=== PATIENT | male | born 1955 | race Caucasian/White ===

== ENCOUNTER 2017-10-25 18:46 | Inpatient (IN) | payer MEDICARE ==
[2017-10-25] MEDS ORDERED: Acetaminophen 500 MG TAB ONE (19:16)
[2017-10-25] MEDS ORDERED: Piperacillin/Tazobactam 3.375 GM VIAL ONE (20:38)
--- NOTE | 2017-10-25 20:46 | CT ---
CT OF THE ABDOMEN AND PELVIS WITHOUT CONTRAST: Date: 10/25/17 INDICATION: History of CVA. Tenderness on the left with concern for pyelonephritis. COMPARISON: Prior exam dated 02/02/17 and 03/17/17. 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 Unopacified liver, spleen, pancreas, and adrenal glands are unchanged. The gallbladder is surgically absent. IVC filter in place. No perinephric stranding is evident. No hydronephrosis is evident. There is a Levin catheter in decompressed bladder. There is perivesicular fat stranding. There is colonic diverticulosis. 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 Stable fro m prior exam. IMPRESSION: 1. Findings suspicious for cystitis. 2. The kidneys are symmetrical in size without evidence of perinephric stranding. No overt noncontra st CT findings to suggest pyelonephritis. 3. Colonic diverticulosis. 4. 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 5. Cholecystectomy. 6. IVC filter. POS: [facility]
[2017-10-25] MEDS ORDERED: Ondansetron HCl/PF 4 MG/2 ML Vial IVP PRN ×2 (21:45→21:47)
[2017-10-25] MEDS ORDERED: Bisacodyl 5 MG TAB PO PRN (21:45)
[2017-10-25] MEDS ORDERED: Milk Of Magnesia 30 ML UDCUP PO PRN (21:45)
[2017-10-25] MEDS ORDERED: Nitroglycerin 0.4 MG TAB (25 Tab Bottle) SL PRN (21:45)
[2017-10-25] MEDS ORDERED: hydrALAZINE 20 MG/ML VIAL SLOW IVP PRN (21:45)
[2017-10-25] MEDS ORDERED: cloNIDine 0.1 MG TAB PO PRN (21:45)
[2017-10-25] MEDS ORDERED: Diabetic Tussin 200 MG/10 ML UDCUP PO PRN (21:45)
[2017-10-25] MEDS ORDERED: Acetaminophen 325 MG TAB PO PRN ×2 (21:45→21:47)
[2017-10-25] MEDS ORDERED: Benzonatate 100 MG CAP PO PRN (21:45)
[2017-10-25] MEDS ORDERED: Mag-Al 1200 mg/1200 mg/30 ML UDCUP PO PRN (21:45)
[2017-10-25] MEDS ORDERED: Loratadine 10 MG TAB PO PRN (21:45)
[2017-10-25] MEDS ORDERED: Senokot 8.6 MG TAB PO PRN (21:45)
[2017-10-25] MEDS ORDERED: Calcium Carbonate 500 MG ChewTAB PO PRN (21:45)
[2017-10-25] MEDS ORDERED: Ondansetron ODT 4 MG TAB SL PRN (21:47)
[2017-10-25] MEDS ORDERED: Sodium Chloride 0.9% 1,000 ML IV SCH (21:47)
[2017-10-25] MEDS ORDERED: diphenhydrAMINE 12.5 MG in Sodium Chloride 0.9% 50 ML IVPB PRN (21:48)
[2017-10-25] MEDS ORDERED: diphenhydrAMINE 50 MG/ML VIAL IVP PRN (22:12)
[2017-10-25 22:46] VITALS: BMI 29.4
[2017-10-25] MEDS: Sodium Chloride 0.9% 1,000 ML IV SCH (23:01)
[2017-10-25] MEDS ORDERED: Ondansetron ODT 4 MG TAB PO PRN (23:42)
[2017-10-25] MEDS: Lorazepam 1 MG TAB PO PRN (23:50)
[2017-10-25] MEDS: traMADol HCl 50 MG TAB PO PRN (23:50)
[2017-10-26] MEDS ORDERED: Nitroglycerin 0.4 MG TAB (25 Tab Bottle) SL PRN (01:17)
[2017-10-26] MEDS ORDERED: PROVENTIL INHALER 6.7 G (200 INHALATIONS) INH PRN (01:17)
[2017-10-26] MEDS ORDERED: Docusate 100 MG CAP PO PRN (01:17)
--- NOTE | 2017-10-26 02:14 | HP ---
DATE OF ADMISSION: 10/25/2017 Patient was seen prior to midnight. CHIEF COMPLAINT: Back pain, nausea, vomiting, and inability to tolerate oral. PRIMARY CARE PHYSICIAN: Dr. Harvey Barba. PRIMARY UROLOGIST: Dr. Smith in [place] at [facility]. HISTORY OF PRESENT ILLNESS: Mr. Valladares is a pleasant 62-year-old male with past medical history of i ndwelling Levin catheter for urinary retention as well as history of coronary artery disease, GERD, g astritis, chronic back pain, history of pulmonary embolism, who presented to [facility] with complaints of nausea and vomiting. History is mainly obtained by the patient who was a formerly [facility] poor historian because he is very hard of hearing and he does not really want to talk in the middl e of night at this time. According to the record review, Mr. Valladares was brought into [facility] by EMS with n ausea, vomiting since last night without blood. He reported several episodes to the ER physician. Tanya ahuja was seen in the emergency room one day prior to this for complaints of sinusitis and was given azit hromycin and steroids, but he never got his medications filled. He also gave history of headache sin ce this morning. He denied any abdominal pain or warm or diarrhea. His last BM was this morning. Tanya ahuja endorsed malaise and some back pain and increased urinary frequency. Upon presentation to the ER, he was hemodynamically stable with blood pressure 148/79 and afebrile wi th temperature 99.4. His oxygen saturation was 100% on room air. Further evaluation included blood work, which showed evidence of urinary tract infection with leukocyte esterase and wbc's in the urine . He was also found to have a leukocytosis with WBCs of 16.5 with a left shift. He did not have any evidence of acute renal insufficiency. He was transferred to our facility for further care. There was concern of pyelonephritis, as the patient has an indwelling suprapubic catheter. He underw ent a CT scan of the abdomen and pelvis, which showed cystitis, but no evidence of pyelonephritis. Tanya ahuja was given empiric antibiotics in the emergency room initially levofloxacin and then Zosyn in our em ergency room and is now being admitted for urinary tract infection: Failed outpatient antibiotic moy tment and sepsis. PAST MEDICAL HISTORY: 1. History of urinary retention. 2. Sleep apnea. 3. History of TIA remotely. 4. Coronary artery disease. 5. Gastroesophageal reflux disease. 6. Gastritis. 7. Pulmonary embolus. 8. Pneumothorax. 9. Migraines. 10. Hypertension. 11. COPD. 12. Psychiatric diagnosis. PAST SURGICAL HISTORY: Left rotator cuff repair 2015, right knee arthroscopy, tonsillectomy, IVC vangie ter placement, lap for abdominal pain, hiatal hernia repair, CABG x3 vessels in 2007, laparoscopic ch olecystectomy. ALLERGIES: Multitude of allergies including ANCEF, KEFLEX, DETROL, FLOMAX, HALDOL, METHADONE, PROPOF OL, ZOCOR, SULFA, THORAZINE, TRAZODONE, and VANCOMYCIN. FAMILY HISTORY: No family history of clotting or bleeding disorders. No immune dysfunction. No his tory of stroke or heart disease runs in his family. SOCIAL HISTORY: He has smoked 3 packs per day for more than 30 years, but is cutting down. No histo ry of known drug or alcohol abuse. CURRENT MEDICATIONS: As listed in the [employer] include Combivent q.i.d., Colace as needed, Xanax 0.5 mg b.i.d., Phenergan as needed, Zofran as needed, sublingual nitroglycerin, Plavix 75 mg daily, Lyri ca 300 mg p.o. b.i.d., Protonix 40 mg daily, aspirin 81 mg daily, albuterol inhaler as needed, tramad ol as needed. REVIEW OF SYSTEMS: It is somewhat limited as the patient is somewhat sleepy and not really forthcomi ng with history taking. He denies any significant discomfort at this time except feeling a bit febri le. He denies any abdominal pain or any back pain at this time. LABORATORY DATA: CBC shows WBCs at 16.5 with 88% neutrophils, otherwise unremarkable. Serum polymer chemist ry shows bicarbonate at 15, otherwise unremarkable. Lactic acid was not done. Renal function within normal limits. Urinalysis shows proteinuria, ketones, blood, small leukocyte esterase, 7-10 wbc's p er high power field with squamous epithelial cells. CT scan of the abdomen and pelvis by my review has no evidence to suggest any perinephric stranding i ndicative of pyelonephritis. IVC filter is in place. Diverticulosis is seen and findings are suspic ious for cystitis. There is no hydronephrosis. PHYSICAL EXAMINATION: VITAL SIGNS: Temperature 98.9, pulse of 76, respirations 24, saturating 100% on room air, blood pres sure 168/78. GENERAL: No acute distress, awake, alert, oriented x3 when woken up from the sleep. HEENT: Mucous membrane is moist and pink. No oropharyngeal exudate or erythema. Head is normocepha lic, atraumatic. Pupils equal, reactive to light and accommodation. Extraocular movement intact. NECK: Supple without any lymphadenopathy, JVD, or bruit. CHEST: Clear to auscultation without any wheezing, rales, or rhonchi. CARDIOVASCULAR: Rhythm is regular without any murmur, rubs, or gallops. ABDOMEN: Soft, nontender, nondistended with positive bowel sounds. No CVA tenderness. Suprapubic c atheter is in place with return of clear yellow urine without any blood. EXTREMITIES: Free of any cyanosis, clubbing, or edema. NEUROLOGIC: Nonfocal. SKIN: Free of any rashes or bruises, feels warm and dry to touch. PSYCHIATRIC: Normal affect. IMPRESSION AND PLAN: 1. Urinary tract infection. The patient is obviously at risk for frequent urinary tract infection a nd resistant urinary tract infection due to suprapubic catheter. He follows up with [facility] and reports that his catheter does get changed every 2 weeks. It was changed today by home nurse. He has been given Zosyn in the emergency room without any allergic reaction and we will continue demetrio t for now. Urine cultures and blood cultures have been obtained and we will follow the results. He will be on gentle IV fluid hydration as well. 2. Sepsis, suspected secondary to #1. Management with IV antibiotic cultures and IV fluids as above . 3. History of coronary artery disease. We will resume his aspirin and Plavix for now. Rest of his home medications are not confirmed at this time. 4. History of chronic obstructive pulmonary disease, currently without any acute exacerbation. We w ill continue with his nebulizer and Combivent for now. 5. History of urinary retention. We will continue follow up with his urologist as an outpatient. Tanya ahuja has suprapubic catheter, which was recently changed. At this time, he does not appear to be on any medication for urinary retention. 6. History of gastroesophageal reflux disease. We will continue with his Protonix. 7. History of hypertension. We will continue with his home medication. 8. Code status: FULL CODE. Discussed with the patient. DISPOSITION: Mr. Valladares is currently being admitted for urinary tract infection and sepsis. [facility] ed length of stay is at least 2-3 midnight. Further management will depend upon his clinical course and the results of his urine culture.
[2017-10-26] MEDS ORDERED: Piperacillin/Tazobactam 4.5 GM in Sodium Chloride 0.9% 100 ML IVPB SCH (03:00)
[2017-10-26] MEDS: Piperacillin/Tazobactam 3.375 GM in Sodium Chloride 0.9% 100 ML IVPB SCH ×4 (03:02→20:43)
[2017-10-26] MEDS: Ondansetron ODT 4 MG TAB PO PRN ×2 (04:19→23:36)
[2017-10-26] MEDS: traMADol HCl 50 MG TAB PO PRN ×2 (04:20→15:18)
[2017-10-26] MEDS: Lorazepam 1 MG TAB PO PRN (04:21)
[2017-10-26 04:56] LABS: #Eosinphils 0.1 thou/uL (0.0-0.7); #Lymphocytes 1.9 thou/uL (1.20-3.40); #Monocytes 0.8 thou/uL (0.11-0.59); #Neutrophils 6.6 thou/uL (1.40-6.50); %Basophils 0.4 % (0.0-1.0); %Eosinophils 0.7 % (0.0-10.0); %Lymphocytes 20.2 % (21.0-51.0); %Monocytes 8.7 % (0.0-10.0); %Neutrophils 70.1 % (42.0-75.0); Hemoglobin 15.8 g/dL (14.0-18.0); Mean Corpuscular HGB CONC 32.9 g/dL (32.0-36.0); Mean Corpuscular Hemoglobin 31.1 pg (27.0-31.0); Mean Corpuscular Volume 94.4 fl (80.0-94.0); Mean Platelet Volume 7.8 fL (7.4-10.4); Platelet Count 207 thou/uL (130-400); RBC Distribution Width 13.5 % (11.5-14.5); Red Blood Cell (RBC) Count 5.09 mill/uL (4.70-6.10); White Blood Cell (WBC) Count 9.5 thou/uL (4.8-10.8)
[2017-10-26 05:16] LABS: Anion Gap 12 mmol/L (10-20); BUN (Urea Nitrogen) 10 mg/dL (8.4-25.7); Calc. Creatinine Clearance 119 mL/min (70-130); Calcium 9.9 mg/dL (7.8-10.44); Carbon Dioxide 18 mmol/L (23-31); Chloride 111 mmol/L (98-107); Estimated GFR-MDRD 90; Glucose 82 mg/dL (80-115); Potassium 3.9 mmol/L (3.5-5.1); Sodium 137 mmol/L (136-145)
[2017-10-26] MEDS: Enoxaparin Sodium 40 MG/0.4 ML SYRINGE SC SCH (09:01)
[2017-10-26] MEDS: Pregabalin 75 MG CAP PO SCH ×2 (09:03→20:45)
[2017-10-26] MEDS: Clopidogrel Bisulfate 75 MG TAB PO SCH (09:04)
[2017-10-26] MEDS: Aspirin 81 mg Enteric Coated Tablet PO SCH (09:04)
[2017-10-26] MEDS: Famotidine 20 MG TAB PO SCH ×2 (09:04→20:45)
[2017-10-26] MEDS: Docusate 100 MG CAP PO SCH ×2 (09:04→20:47)
[2017-10-26] MEDS: ALPRAZolam 0.5 MG TAB PO SCH ×2 (09:04→20:46)
[2017-10-26] MEDS ORDERED: Ketorolac Tromethamine 30 MG/ML VIAL ONE (11:28)
[2017-10-26] MEDS: Sodium Chloride 0.9% 1,000 ML IV SCH (11:35)
--- NOTE | 2017-10-26 12:55 | PDOC.PN ---
- Subjective Encounter Start Date: 10/26/17 Encounter Start Time: 08:00 -: old records requested/rev Patient seen and examined for UTI. his pain is not controlled with tramadol. No overnight events - Objective MAR Reviewed: Yes Vital Signs & Weight: Vital Signs (12 hours) Temp Pulse Resp BP Pulse Ox 10/26/17 11:14 98.4 F 86 20 167/91 H 97 10/26/17 10:30 68 20 96 10/26/17 08:02 65 20 98 10/26/17 08:00 98.4 F 67 20 100 10/26/17 07:31 98.4 F 67 20 167/82 H 100 10/26/17 04:24 99.7 F H 86 22 H 172/98 H 97 Weight Admit Weight 211 lb 3.2 oz Weight 211 lb 3.2 oz I&O: 10/25/17 10/26/17 10/27/17 06:59 06:59 06:59 Intake Total 850 Output Total 1850 600 Balance -1000 -600 Result Diagrams: 10/26/17 04:05 10/26/17 04:05 Phys Exam - Physical Examination Constitutional: NAD HEENT: PERRLA, moist MMs, sclera anicteric Neck: no JVD, supple Respiratory: no wheezing, no rales, no rhonchi Cardiovascular: RRR, no significant murmur, no rub Gastrointestinal: soft, non-tender, no distention, positive bowel sounds Musculoskeletal: no edema, pulses present Neurological: non-focal, normal sensation, moves all 4 limbs Lymphatic: no nodes Psychiatric: normal affect, A&O x 3 Skin: no rash, normal turgor Dx/Plan (1) Sepsis Code(s): A41.9 - SEPSIS, UNSPECIFIED ORGANISM Status: Acute (2) UTI (urinary tract infection) Status: Acute (3) Anxiety and depression Code(s): F41.9 - ANXIETY DISORDER, UNSPECIFIED; F32.9 - MAJOR DEPRESSIVE DISORDER, SINGLE EPISODE, UNSPECIFIED Status: Chronic (4) COPD (chronic obstructive pulmonary disease) Status: Chronic (5) Carotid stenosis, left Code(s): I65.22 - OCCLUSION AND STENOSIS OF LEFT CAROTID ARTERY Status: Chronic (6) Coronary artery disease Code(s): I25.10 - ATHSCL HEART DISEASE OF [place] CORONARY ARTERY W/O ANG PCTRS Status: Chronic (7) Diverticulosis of colon Code(s): K57.30 - DVRTCLOS OF LG INT W/O PERFORATION OR ABSCESS W/O BLEEDING Status: Chronic (8) GERD (gastroesophageal reflux disease) Code(s): K21.9 - GASTRO-ESOPHAGEAL REFLUX DISEASE WITHOUT ESOPHAGITIS Status: Chronic (9) Hypertension Code(s): I10 - ESSENTIAL (PRIMARY) HYPERTENSION Status: Chronic - Plan cont current plan of care, continue antibiotics * continue zosyn * follow up on C & S result * add toradol for pain control * medication reviewed as below * symptomatic treatment. * selected home medication reconciled Review of Systems - Review of Systems Constitutional: weakness. negative: fever, chills, sweats, malaise, other ENT: negative: Ear Pain, Ear Discharge, Nose Pain, Nose Discharge, Nose Congestion, Mouth Pain, Mouth Swelling, Throat Pain, Throat Swelling, Other Respiratory: negative: Cough, Dry, Shortness of Breath, Hemoptysis, SOB with Excertion, Pleuritic Pain, Sputum, Wheezing Cardiovascular: negative: chest pain, palpitations, orthopnea, paroxysmal nocturnal dyspnea, edema, light headedness, other Gastrointestinal: negative: Nausea, Vomiting, Abdominal Pain, Diarrhea, Constipation, Melena, Hematochezia, Other Genitourinary: Dysuria. negative: Frequency, Incontinence, Hematuria, Retention , Other Musculoskeletal: negative: Neck Pain, Shoulder Pain, Arm Pain, Back Pain, Hand Pain, Leg Pain, Foot Pain, Other Skin: negative: Rash, Lesions, Best, Bruising, Other - Medications/Allergies Allergies/Adverse Reactions: Allergies Allergy/AdvReac Type Severity Reaction Status Date / Time propofol Allergy Severe Anaphylaxis Verified 12/16/15 23:45 vancomycin Allergy Severe Anaphylaxis Verified 12/24/15 13:20 cephalexin monohydrate Allergy Mild Rash Verified 12/16/15 23:45 [From Keflex] cefazolin sodium [From Ancef] Allergy Verified 12/16/15 23:45 haloperidol [From Haldol] Allergy Verified 12/16/15 23:45 haloperidol lactate Allergy Verified 02/24/13 14:37 [From Haldol] levofloxacin [From Levaquin] Allergy Verified 02/24/13 14:37 methadone [Methadone] Allergy Verified 02/24/13 14:37 simvastatin [From Zocor] Allergy Verified 02/24/13 14:38 Sulfa (Sulfonamide Allergy Rash Verified 12/16/15 23:45 Antibiotics) sulfacetamide sodium Allergy Verified 02/24/13 14:37 [From Sulfacet-R] sulfur [From Sulfacet-R] Allergy Verified 02/24/13 14:37 tamsulosin HCl [From Flomax] Allergy Verified 02/24/13 14:37 tolterodine tartrate Allergy Verified 02/24/13 14:37 [From Detrol] trazodone Allergy Verified 02/24/13 14:38 Medications: Current Medications Acetaminophen (Tylenol) 650 mg PO Q4H PRN PRN Reason: Headache/Fever or Pain Al Hydroxide/Mg Hydroxide (Maalox) 30 ml PO Q6H PRN PRN Reason: Heartburn or Indigestion Albuterol Sulfate (Proventil Hfa) 2 puff INH Q4H PRN PRN Reason: SOB &/or Wheezing Albuterol/Ipratropium (Duoneb) 3 ml NEB Q6H PRN PRN Reason: SOB &/or Wheezing Albuterol/Ipratropium (Duoneb) 3 ml NEB QID-RT [facility] Last Admin: 10/26/17 10:30 Dose: 3 ml Alprazolam (Xanax) 0.5 mg PO BID [facility] Last Admin: 10/26/17 09:04 Dose: 0.5 mg Aspirin (Ecotrin) 81 mg PO DAILY [facility] Last Admin: 10/26/17 09:04 Dose: 81 mg Benzonatate (Tessalon) 100 mg PO Q4H PRN PRN Reason: Cough Bisacodyl (Dulcolax) 10 mg PO DAILYPRN PRN PRN Reason: Constipation Calcium Carbonate (Tums) 1,000 mg PO Q4H PRN PRN Reason: Heartburn or Indigestion Clonidine (Catapres) 0.1 mg PO Q4H PRN PRN Reason: Systolic BP > 160 Clopidogrel Bisulfate (Plavix) 75 mg PO DAILY [facility] Last Admin: 10/26/17 09:04 Dose: 75 mg Diphenhydramine HCl (Benadryl) 12.5 mg IVP ONE PRN PRN Reason: ALLERGIES Stop: 11/24/17 22:13 Docusate Sodium (Colace) 100 mg PO BID [facility] Last Admin: 10/26/17 09:04 Dose: 100 mg Docusate Sodium (Colace) 100 mg PO DAILY PRN PRN Reason: Constipation Enoxaparin Sodium (Lovenox) 40 mg SC 0900 [facility] Last Admin: 10/26/17 09:01 Dose: 40 mg Famotidine (Pepcid) 20 mg PO BID [facility] Last Admin: 10/26/17 09:04 Dose: 20 mg Guaifenesin (Robitussin Sf) 200 mg PO Q4H PRN PRN Reason: Cough Hydralazine HCl (Apresoline) 10 mg SLOW IVP Q4H PRN PRN Reason: Systolic BP > 170 Sodium Chloride (Normal Saline 0.9%) 1,000 mls @ 75 mls/hr IV .[id number] [facility] Last Admin: 10/26/17 11:35 Dose: 1,000 mls Piperacillin Sod/Tazobactam (Sod 3.375 gm/ Sodium Chloride) 100 mls @ 200 mls/ hr IVPB 0300,0900,1500,2100 [facility] Last Admin: 10/26/17 08:54 Dose: 100 mls Ketorolac Tromethamine (Toradol) 15 mg IVP Q6H PRN PRN Reason: Pain Stop: 10/31/17 11:33 Loratadine (Claritin) 10 mg PO DAILYPRN PRN PRN Reason: Sinus Symptoms Lorazepam (Ativan) 1 mg PO Q4H PRN PRN Reason: Anxiety/Agitation Last Admin: 10/26/17 04:21 Dose: 1 mg Magnesium Hydroxide (Milk Of Magnesium) 30 ml PO DAILYPRN PRN PRN Reason: Constipation Nitroglycerin (Nitrostat) 0.4 mg SL Q5MIN PRN PRN Reason: Chest Pain Ondansetron HCl (Zofran Odt) 4 mg PO Q4H PRN PRN Reason: Nausea/Vomiting Last Admin: 10/26/17 04:19 Dose: 4 mg Pantoprazole Sodium (Protonix) 80 mg PO DAILY [facility] Last Admin: 10/26/17 09:04 Dose: 80 mg Pregabalin (Lyrica) 300 mg PO BID [facility] Last Admin: 10/26/17 09:03 Dose: 300 mg Senna (Senokot) 2 tab PO HSPRN PRN PRN Reason: Constipation Tramadol HCl (Ultram) 50 mg PO Q4H PRN PRN Reason: Moderate Pain (4-6) Last Admin: 10/26/17 04:20 Dose: 50 mg
[2017-10-26] MEDS: Ketorolac Tromethamine 30 MG/ML VIAL IVP PRN (23:32)
[2017-10-27] MEDS: Sodium Chloride 0.9% 1,000 ML IV SCH (01:03)
[2017-10-27] MEDS: Piperacillin/Tazobactam 3.375 GM in Sodium Chloride 0.9% 100 ML IVPB SCH ×4 (02:27→20:27)
[2017-10-27] MEDS: Ketorolac Tromethamine 30 MG/ML VIAL IVP PRN ×3 (07:33→22:09)
[2017-10-27] MEDS: Enoxaparin Sodium 40 MG/0.4 ML SYRINGE SC SCH (07:34)
[2017-10-27] MEDS: Pregabalin 75 MG CAP PO SCH ×2 (07:35→20:24)
[2017-10-27] MEDS: Famotidine 20 MG TAB PO SCH ×2 (07:35→20:24)
[2017-10-27] MEDS: Docusate 100 MG CAP PO SCH ×2 (07:35→20:26)
[2017-10-27] MEDS: ALPRAZolam 0.5 MG TAB PO SCH ×2 (07:36→20:25)
[2017-10-27] MEDS: Aspirin 81 mg Enteric Coated Tablet PO SCH (07:36)
[2017-10-27] MEDS: Clopidogrel Bisulfate 75 MG TAB PO SCH (07:36)
[2017-10-27 07:51] LABS: #Basophils 0.1 thou/uL (0.0-0.2); #Eosinphils 0.2 thou/uL (0.0-0.7); #Lymphocytes 2.7 thou/uL (1.20-3.40); #Monocytes 0.7 thou/uL (0.11-0.59); #Neutrophils 2.4 thou/uL (1.40-6.50); %Basophils 1.6 % (0.0-1.0); %Eosinophils 3.3 % (0.0-10.0); %Lymphocytes 43.8 % (21.0-51.0); %Neutrophils 40.3 % (42.0-75.0); Hemoglobin 15.2 g/dL (14.0-18.0); Mean Corpuscular Hemoglobin 30.3 pg (27.0-31.0); Mean Corpuscular Volume 91.8 fl (80.0-94.0); Mean Platelet Volume 7.7 fL (7.4-10.4); Platelet Count 172 thou/uL (130-400); RBC Distribution Width 13.4 % (11.5-14.5); Red Blood Cell (RBC) Count 5.03 mill/uL (4.70-6.10); White Blood Cell (WBC) Count 6.1 thou/uL (4.8-10.8)
[2017-10-27 08:16] LABS: ALT (SGPT) 12 U/L (8-55); AST (SGOT) 14 U/L (5-34); Albumin 3.7 g/dL (3.4-4.8); Alkaline Phosphatase 111 U/L (40-150); Anion Gap 11 mmol/L (10-20); BUN (Urea Nitrogen) 12 mg/dL (8.4-25.7); Calc. Creatinine Clearance 90 mL/min (70-130); Calcium 9.6 mg/dL (7.8-10.44); Carbon Dioxide 19 mmol/L (23-31); Chloride 111 mmol/L (98-107); Estimated GFR-MDRD 65; Globulin 2.8 g/dL (2.4-3.5); Glucose 87 mg/dL (80-115); Potassium 3.9 mmol/L (3.5-5.1); Protein, Total 6.5 g/dL (5.8-8.1); Sodium 137 mmol/L (136-145)
[2017-10-27] MEDS: Ondansetron ODT 4 MG TAB PO PRN (10:07)
--- NOTE | 2017-10-27 12:46 | PDOC.PN ---
- Subjective Encounter Start Date: 10/27/17 Encounter Start Time: 08:30 Patient seen and examined for UTI. c/o mild headache. No overnight events - Objective MAR Reviewed: Yes Vital Signs & Weight: Vital Signs (12 hours) Temp Pulse Resp BP Pulse Ox 10/27/17 10:35 83 18 96 10/27/17 08:00 97.7 F 77 20 96 10/27/17 07:05 77 18 97 10/27/17 07:01 97.7 F 77 20 166/89 H 96 Weight Admit Weight 211 lb 3.2 oz Weight 211 lb 3.2 oz I&O: 10/26/17 10/27/17 10/28/17 06:59 06:59 06:59 Intake Total 850 540 240 Output Total 1850 3900 Balance -1000 -3360 240 Result Diagrams: 10/27/17 07:26 10/27/17 07:26 Phys Exam - Physical Examination Constitutional: NAD HEENT: PERRLA, moist MMs, sclera anicteric Neck: no JVD, supple Respiratory: no wheezing, no rales, no rhonchi Cardiovascular: RRR, no significant murmur, no rub Gastrointestinal: soft, non-tender, no distention, positive bowel sounds Musculoskeletal: no edema, pulses present garcia+ Neurological: non-focal, normal sensation Lymphatic: no nodes Psychiatric: normal affect, A&O x 3 Skin: no rash, normal turgor Dx/Plan (1) UTI (urinary tract infection) due to urinary indwelling Garcia catheter Code(s): T83.511A - I/I REACT D/T INDWELLING URETHRAL CATHETER, INIT; N39.0 - URINARY TRACT INFECTION, SITE NOT SPECIFIED Status: Acute (2) Sepsis Code(s): A41.9 - SEPSIS, UNSPECIFIED ORGANISM Status: Acute (3) Anxiety and depression Code(s): F41.9 - ANXIETY DISORDER, UNSPECIFIED; F32.9 - MAJOR DEPRESSIVE DISORDER, SINGLE EPISODE, UNSPECIFIED Status: Chronic (4) COPD (chronic obstructive pulmonary disease) Status: Chronic (5) Carotid stenosis, left Code(s): I65.22 - OCCLUSION AND STENOSIS OF LEFT CAROTID ARTERY Status: Chronic (6) Coronary artery disease Code(s): I25.10 - ATHSCL HEART DISEASE OF [place] CORONARY ARTERY W/O ANG PCTRS Status: Chronic (7) Diverticulosis of colon Code(s): K57.30 - DVRTCLOS OF LG INT W/O PERFORATION OR ABSCESS W/O BLEEDING Status: Chronic (8) GERD (gastroesophageal reflux disease) Code(s): K21.9 - GASTRO-ESOPHAGEAL REFLUX DISEASE WITHOUT ESOPHAGITIS Status: Chronic (9) Hypertension Code(s): I10 - ESSENTIAL (PRIMARY) HYPERTENSION Status: Chronic - Plan cont current plan of care, continue antibiotics, PT/OT, mental health social worker * pt [facility] [place] * continue zosyn * await C & S result * medication reviewed as below * symptomatic treatment * case reviewer is working on his placement. Review of Systems - Review of Systems Eyes: negative: Pain, Vision Change, Conjunctivae Inflammation, Eyelid Inflammation, Redness, Other ENT: negative: Ear Pain, Ear Discharge, Nose Pain, Nose Discharge, Nose Congestion, Mouth Pain, Mouth Swelling, Throat Pain, Throat Swelling, Other Respiratory: negative: Cough, Dry, Shortness of Breath, Hemoptysis, SOB with Excertion, Pleuritic Pain, Sputum, Wheezing Cardiovascular: negative: chest pain, palpitations, orthopnea, paroxysmal nocturnal dyspnea, edema, light headedness, other Gastrointestinal: negative: Nausea, Vomiting, Abdominal Pain, Diarrhea, Constipation, Melena, Hematochezia, Other Genitourinary: negative: Dysuria, Frequency, Incontinence, Hematuria, Retention , Other Musculoskeletal: negative: Neck Pain, Shoulder Pain, Arm Pain, Back Pain, Hand Pain, Leg Pain, Foot Pain, Other Skin: negative: Rash, Lesions, Best, Bruising, Other - Medications/Allergies Allergies/Adverse Reactions: Allergies Allergy/AdvReac Type Severity Reaction Status Date / Time propofol Allergy Severe Anaphylaxis Verified 12/16/15 23:45 vancomycin Allergy Severe Anaphylaxis Verified 12/24/15 13:20 cephalexin monohydrate Allergy Mild Rash Verified 12/16/15 23:45 [From Keflex] cefazolin sodium [From Ancef] Allergy Verified 12/16/15 23:45 haloperidol [From Haldol] Allergy Verified 12/16/15 23:45 haloperidol lactate Allergy Verified 02/24/13 14:37 [From Haldol] levofloxacin [From Levaquin] Allergy Verified 02/24/13 14:37 methadone [Methadone] Allergy Verified 02/24/13 14:37 simvastatin [From Zocor] Allergy Verified 02/24/13 14:38 Sulfa (Sulfonamide Allergy Rash Verified 12/16/15 23:45 Antibiotics) sulfacetamide sodium Allergy Verified 02/24/13 14:37 [From Sulfacet-R] sulfur [From Sulfacet-R] Allergy Verified 02/24/13 14:37 tamsulosin HCl [From Flomax] Allergy Verified 02/24/13 14:37 tolterodine tartrate Allergy Verified 02/24/13 14:37 [From Detrol] trazodone Allergy Verified 02/24/13 14:38 Medications: Current Medications Acetaminophen (Tylenol) 650 mg PO Q4H PRN PRN Reason: Headache/Fever or Pain Al Hydroxide/Mg Hydroxide (Maalox) 30 ml PO Q6H PRN PRN Reason: Heartburn or Indigestion Albuterol Sulfate (Proventil Hfa) 2 puff INH Q4H PRN PRN Reason: SOB &/or Wheezing Albuterol/Ipratropium (Duoneb) 3 ml NEB Q6H PRN PRN Reason: SOB &/or Wheezing Albuterol/Ipratropium (Duoneb) 3 ml NEB QID-RT [facility] Last Admin: 10/27/17 10:35 Dose: 3 ml Alprazolam (Xanax) 0.5 mg PO BID [facility] Last Admin: 10/27/17 07:36 Dose: 0.5 mg Aspirin (Ecotrin) 81 mg PO DAILY [facility] Last Admin: 10/27/17 07:36 Dose: 81 mg Benzonatate (Tessalon) 100 mg PO Q4H PRN PRN Reason: Cough Bisacodyl (Dulcolax) 10 mg PO DAILYPRN PRN PRN Reason: Constipation Calcium Carbonate (Tums) 1,000 mg PO Q4H PRN PRN Reason: Heartburn or Indigestion Clonidine (Catapres) 0.1 mg PO Q4H PRN PRN Reason: Systolic BP > 160 Clopidogrel Bisulfate (Plavix) 75 mg PO DAILY [facility] Last Admin: 10/27/17 07:36 Dose: 75 mg Diphenhydramine HCl (Benadryl) 12.5 mg IVP ONE PRN PRN Reason: ALLERGIES Stop: 11/24/17 22:13 Docusate Sodium (Colace) 100 mg PO BID [facility] Last Admin: 10/27/17 07:35 Dose: 100 mg Docusate Sodium (Colace) 100 mg PO DAILY PRN PRN Reason: Constipation Enoxaparin Sodium (Lovenox) 40 mg SC 0900 [facility] Last Admin: 10/27/17 07:34 Dose: 40 mg Famotidine (Pepcid) 20 mg PO BID [facility] Last Admin: 10/27/17 07:35 Dose: 20 mg Guaifenesin (Robitussin Sf) 200 mg PO Q4H PRN PRN Reason: Cough Hydralazine HCl (Apresoline) 10 mg SLOW IVP Q4H PRN PRN Reason: Systolic BP > 170 Piperacillin Sod/Tazobactam (Sod 3.375 gm/ Sodium Chloride) 100 mls @ 200 mls/ hr IVPB 0300,0900,1500,2100 [facility] Last Admin: 10/27/17 07:32 Dose: 100 mls Ketorolac Tromethamine (Toradol) 15 mg IVP Q6H PRN PRN Reason: Pain Stop: 10/31/17 11:33 Last Admin: 10/27/17 07:33 Dose: 15 mg Loratadine (Claritin) 10 mg PO DAILYPRN PRN PRN Reason: Sinus Symptoms Lorazepam (Ativan) 1 mg PO Q4H PRN PRN Reason: Anxiety/Agitation Last Admin: 10/26/17 04:21 Dose: 1 mg Magnesium Hydroxide (Milk Of Magnesium) 30 ml PO DAILYPRN PRN PRN Reason: Constipation Nitroglycerin (Nitrostat) 0.4 mg SL Q5MIN PRN PRN Reason: Chest Pain Ondansetron HCl (Zofran Odt) 4 mg PO Q4H PRN PRN Reason: Nausea/Vomiting Last Admin: 10/27/17 10:07 Dose: 4 mg Pantoprazole Sodium (Protonix) 80 mg PO DAILY [facility] Last Admin: 10/27/17 07:36 Dose: 80 mg Pregabalin (Lyrica) 300 mg PO BID [facility] Last Admin: 10/27/17 07:35 Dose: 300 mg Senna (Senokot) 2 tab PO HSPRN PRN PRN Reason: Constipation Tramadol HCl (Ultram) 50 mg PO Q4H PRN PRN Reason: Moderate Pain (4-6) Last Admin: 10/26/17 15:18 Dose: 50 mg
[2017-10-27] MEDS: traMADol HCl 50 MG TAB PO PRN (20:25)
[2017-10-28] MEDS: Ketorolac Tromethamine 30 MG/ML VIAL IVP PRN ×3 (04:23→16:43)
[2017-10-28] MEDS: Piperacillin/Tazobactam 3.375 GM in Sodium Chloride 0.9% 100 ML IVPB SCH ×2 (04:25→09:05)
[2017-10-28] MEDS: Famotidine 20 MG TAB PO SCH (09:06)
[2017-10-28] MEDS: Pregabalin 75 MG CAP PO SCH (09:06)
[2017-10-28] MEDS: Enoxaparin Sodium 40 MG/0.4 ML SYRINGE SC SCH (09:06)
[2017-10-28] MEDS: Aspirin 81 mg Enteric Coated Tablet PO SCH (09:10)
[2017-10-28] MEDS: Clopidogrel Bisulfate 75 MG TAB PO SCH (09:10)
[2017-10-28] MEDS: Docusate 100 MG CAP PO SCH (09:11)
[2017-10-28] MEDS: ALPRAZolam 0.5 MG TAB PO SCH (09:11)
[2017-10-28] MEDS: traMADol HCl 50 MG TAB PO PRN ×2 (10:41→16:44)
--- NOTE | 2017-10-28 10:54 | CT ---
NONCONTRAST HEAD CT: HISTORY: Headache since Thursday. COMPARISON: None. TECHNIQUE: A noncontrast head CT is performed from the skull base to the skull vertex. FINDINGS: No parenchymal hemorrhage. No extraaxial hematoma. No midline shift. The basilar cisterns are sherman nt. Age appropriate atrophy. Cortical luo white matter differentiation is preserved. No evidence of hydrocephalus. The calvarium is intact. Adequate aeration of the paranasal sinuses a nd mastoid air cells. IMPRESSION: No acute intracranial process. POS: H
--- NOTE | 2017-10-28 12:08 | DIS ---
PRIMARY CARE PHYSICIAN: Dr. Harvey Barba DATE OF ADMISSION: 10/25/2017 DATE OF DISCHARGE: 10/28/2017 DISCHARGE DISPOSITION: [facility]. PRIMARY DISCHARGE DIAGNOSES: 1. Urinary tract infection due to chronic indwelling Levin catheter with methicillin-resistant Staph ylococcus aureus. 2. Sepsis. SECONDARY DISCHARGE DIAGNOSES: Hypertension, gastroesophageal reflux disease, colonic diverticulosis , coronary artery disease, COPD, carotid stenosis, anxiety and depression, chronic indwelling Levin c atheter. PRIMARY PROCEDURE/OPERATION: None. RADIOLOGICAL INVESTIGATION: Abdomen and pelvis CT scan which was done on admission was suggestive of cystitis. CT brain was negative for any acute intracranial process. SIGNIFICANT LABORATORY DATA: WBC 6.1, hemoglobin 15.2, platelet 172. Sodium 137, potassium 3.9, BUN 12, creatinine 1.14, calcium 9.6. LFT normal. Urine culture grew MRSA. DISCHARGE MEDICATIONS: Doxycycline 100 mg p.o. b.i.d. for 15 days, ProAir HFA 2 puffs q.4h. p.r.n., Xanax 0.5 mg p.o. b.i.d., aspirin 81 mg p.o. daily, Plavix 75 mg p.o. daily, Colace 100 mg p.o. daily p.r.n., Lasix 40 mg p.o. b.i.d., Motrin 400 mg p.o. q.6 hourly p.r.n., DuoNeb q.6h. p.r.n., nitrogly cerin 0.4 mg sublingual p.r.n., Zofran 4 mg every 4 hourly p.r.n., Protonix 80 mg p.o. daily, Lyrica 300 mg p.o. b.i.d., Phenergan 25 mg p.r.n., tramadol 50 mg q.4h. p.r.n., tramadol ER 200 mg p.o. shaun y. CONTRAINDICATIONS: None. CODE STATUS: FULL CODE. INPATIENT CONSULTANTS: None. ALLERGIES: PROPOFOL, VANCOMYCIN and KEFLEX. DISCHARGE PLAN: Post hospital, the patient is planned for discharge to [facility]. Subs equently, the patient will follow up with primary care physician. HOSPITAL COURSE: The patient is a 62-year-old male with the above-mentioned medical problem who was admitted by Dr. Rees. Please see her H&P for further detail. The patient was admitted for urinar y tract infection. He does have chronic indwelling catheter. He had CT of the abdomen and pelvis wh ich was also consistent with cystitis. This patient is no longer wanted to go for suprapubic cathete r. During this admission, we treated him with Zosyn. His urine culture grew MRSA and based on that, we changed to doxycycline 100 mg twice daily for 15 days. This patient is at risk for recurrent inf ection because of chronic indwelling Levin catheterization. With IV antibiotic therapy the patient r emained hemodynamically stable. He was afebrile. He was tolerating p.o. well. The patient has unde rlying generalized weakness and that is why he expressed his wish to go to the [facility] . With the help of mental health case manager, we arranged [facility] bed, today he has approval. While in hospital, he kept complaining of headache and that is why he was responding to Toradol, but we did CT brain to rule out any intracranial process. He does not have any focal neurological defici t and CT brain is also unremarkable. The patient is seen and examined at bedside today. VITAL SIGNS: Currently, temperature 97.9, pulse 79, respiratory rate 16, saturation 97% on room air, blood pressure 146/68, weight 211 pounds. GENERAL: The patient is currently alert, awake, no acute distress. HEAD: Normocephalic, atraumatic. EYES: Pupils round, reactive to light. Extraocular muscle intact. ENT: Oropharynx within normal limits. Moist mucous membranes. NECK: Supple, no JVD, no thyromegaly, no carotid bruit. LUNGS: Clear to auscultation without any rhonchi or rales. CARDIAC: S1, S2 regular without any significant murmur. ABDOMEN: Soft and benign. EXTREMITIES: No edema. NEUROLOGIC: Nonfocal examination. Paperwork for discharge done. Discharge medication reconciliation done. Total time spent on discharge today was 31 minutes.
[2017-10-28 16:32] VITALS: BP 153/96; TEMP 98.1
[2017-10-28] MEDS ORDERED: Doxycycline 100 MG CAP PO SCH (21:00)
== END 2017-10-28 17:07 | DRG 698 ==
LOC: ERS 18:46 → T4-B 21:08
PROVIDERS: ADMIT Internal Medicine; ATTEND Internal Medicine
DX: T83.511A Infection and inflammatory reaction due to indwelling urethral catheter, initial encounter (principal); A41.02 Sepsis due to Methicillin resistant Staphylococcus aureus; I25.10 Atherosclerotic heart disease of native coronary artery without angina pectoris; K21.9 Gastro-esophageal reflux disease without esophagitis; G89.29 Other chronic pain; M54.9 Dorsalgia, unspecified; H91.90 Unspecified hearing loss, unspecified ear; Z91.14 Patient's other noncompliance with medication regimen; G47.30 Sleep apnea, unspecified; Z86.73 Personal history of transient ischemic attack (TIA), and cerebral infarction without residual deficits; J44.9 Chronic obstructive pulmonary disease, unspecified; Z95.1 Presence of aortocoronary bypass graft; F17.210 Nicotine dependence, cigarettes, uncomplicated; F32.9 Major depressive disorder, single episode, unspecified; F41.9 Anxiety disorder, unspecified; I65.22 Occlusion and stenosis of left carotid artery; I10 Essential (primary) hypertension
CPT/HCPCS: 36415; 70450; 74176; 80048; 80053; 85025; 87077; 87086; 87186; 94640; 96361; 96374; G8978-GP-CI; G8979-GP-CI; G8980-GP-CI; G8987-GO-CI; G8988-GO-CI; G8989-GO-CI; J1650; J1885; J2543; J7050; Q0162

== ENCOUNTER 2018-11-10 08:44 | Outpatient (CLI) | payer MEDICARE ==
--- NOTE | 2018-11-10 09:25 | MMO ---
Bilateral MAMMO Bilat Diag [facility]. CLINICAL HISTORY: Patient is 63 years old and is seen for diagnostic exam and palpable abnormality in the left breast. The patient has the following family history of breast cancer: mother. The patient has no personal history of cancer. VIEWS: The views performed were: bilateral craniocaudal with tomosynthesis; bilateral mediolateral oblique with tomosynthesis; and bilateral mediolateral. FILMS COMPARED: The present examination has been compared to a prior imaging study performed at [facility] on 08/02/2010. MAMMOGRAM FINDINGS: The breasts are almost entirely fat. There is a flame-shaped retroareolar density on the left, consistent with gynecomastia. There are no suspicious masses, suspicious calcifications, or new areas of architectural distortion. IMPRESSION: THERE IS NO MAMMOGRAPHIC EVIDENCE OF MALIGNANCY. THE RESULTS OF THIS EXAM WERE SENT TO THE PATIENT. ACR BI-RADS Category 2 - Benign finding MAMMOGRAPHY NOTE: 1. A negative mammogram report should not delay a biopsy if a dominant of clinically suspicious mass is present. 2. Approximately 10% to 15% of breast cancers are not detected by mammography. 3. Adenosis and dense breasts may obscure an underlying neoplasm.
== END 2018-11-10 08:45 | disposition home or self-care (01) ==
LOC: BICMAMMO 08:44
PROVIDERS: ATTEND Family Medicine
DX: N62 Hypertrophy of breast (principal)
CPT/HCPCS: 77066; G0279

== ENCOUNTER 2021-11-06 11:47 | Inpatient (IN) | payer MEDICARE ==
[2021-11-06 12:37] LABS: Bilirubin Negative (Negative); Blood, Urine Negative (Negative); Clarity Extra Turbid (Clear); Glucose, Urine (Dipstick) Normal (Negative); Ketone, Urine Negative (Negative); Leukocyte 25 Leu/uL (Negative); Nitrite Negative (Negative); Protein, Urine (Dipstick) 30 mg/dL (Neg-Trace); Specific Gravity, Urine 1.013 (1.002-1.036); pH, Urine 8.5 (5.0-9.0)
[2021-11-06 12:50] LABS: Bacteria/HPF 4+ HPF (None Seen); RBC/HPF 0-3 HPF (0-3); Squamous Epithelial 0-3 HPF (0-3)
[2021-11-06 12:54] LABS: #Eosinphils 0.2 thou/uL (0.0-0.7); #Lymphocytes 1.7 thou/uL (1.20-3.40); #Monocytes 0.5 thou/uL (0.11-0.59); #Neutrophils 3.6 thou/uL (1.40-6.50); %Basophils 0.2 % (0.0-1.0); %Eosinophils 2.9 % (0.0-10.0); %Lymphocytes 28.4 % (21.0-51.0); %Monocytes 7.8 % (0.0-10.0); %Neutrophils 60.7 % (42.0-75.0); Hemoglobin 14.6 g/dL (14.0-18.0); Mean Corpuscular HGB CONC 32.7 g/dL (32.0-36.0); Mean Corpuscular Hemoglobin 32.9 pg (27.0-31.0); Mean Platelet Volume 7.3 fL (7.4-10.4); Platelet Count 264 thou/uL (130-400); RBC Distribution Width 13.9 % (11.5-14.5); Red Blood Cell (RBC) Count 4.45 mill/uL (4.70-6.10); White Blood Cell (WBC) Count 5.9 thou/uL (4.8-10.8)
[2021-11-06] MEDS ORDERED: Dexamethasone 10 MG/ML VIAL ONE (12:57)
[2021-11-06 13:10] LABS: ALT (SGPT) 8 U/L (8-55); AST (SGOT) 11 U/L (5-34); Albumin 3.9 g/dL (3.4-4.8); Alkaline Phosphatase 131 U/L (40-110); Anion Gap 15 mmol/L (10-20); BUN (Urea Nitrogen) 10 mg/dL (8.4-25.7); Bilirubin, Total 1.8 mg/dL (0.2-1.2); Calc. Creatinine Clearance 0 mL/min (70-130); Calcium 10.1 mg/dL (7.8-10.44); Carbon Dioxide 29 mmol/L (23-31); Chloride 96 mmol/L (98-107); Globulin 3.9 g/dL (2.4-3.5); Glucose 121 mg/dL (80-115); Potassium 3.6 mmol/L (3.5-5.1); Protein, Total 7.8 g/dL (5.8-8.1); Sodium 136 mmol/L (136-145)
[2021-11-06] MEDS ORDERED: Azithromycin 500 MG VIAL ONE (14:37)
[2021-11-06] MEDS ORDERED: Doxycycline 100 MG in Sodium Chloride 0.9% 100 ML IVPB SCH (15:00)
[2021-11-06] MEDS ORDERED: Ondansetron PF 4 MG/2 ML Vial IVP PRN (15:39)
[2021-11-06] MEDS ORDERED: Ondansetron ODT 4 MG TAB PO PRN (15:39)
[2021-11-06] MEDS ORDERED: Albuterol Sulfate 2.5 mg/3 ml Neb NEB PRN (15:41)
[2021-11-06] MEDS ORDERED: guaiFENesin 200 MG TAB PO PRN (15:43)
[2021-11-06] MEDS ORDERED: Sodium Chloride 0.9% 1,000 ML IV SCH (15:45)
[2021-11-06 15:59] LABS: Troponin I Less than 0.010 ng/mL (< 0.028)
[2021-11-06] MEDS ORDERED: Ondansetron PF 4 MG/2 ML Vial ONE (16:01)
[2021-11-06 16:12] LABS: Magnesium 2.3 mg/dL (1.6-2.6)
[2021-11-06 17:30] VITALS: BMI 34.9
[2021-11-06] MEDS ORDERED: Nitroglycerin 0.4 MG TAB (25 Tab Bottle) SL PRN (18:07)
[2021-11-06] MEDS: Nicotine 21 MG PATCH TD SCH (18:14)
[2021-11-06] MEDS ORDERED: Benztropine 1 MG TAB PO PRN (18:19)
[2021-11-06 18:45] LABS: Legionella Urinary Ag Negative (Negative); Strep pneumo Urine Ag NEGATIVE (NEGATIVE)
[2021-11-06 20:17] LABS: SARS-CoV-2 NAA Rapid Test Not Detected (NotDetected)
[2021-11-06] MEDS: Metoprolol Tartrate 25 MG TAB PO SCH (20:41)
[2021-11-06] MEDS: risperiDONE 1 MG TAB PO SCH (20:41)
[2021-11-06] MEDS: Escitalopram Oxalate 20 mg Tablet PO SCH (20:41)
[2021-11-06] MEDS: Enoxaparin Sodium 40 MG/0.4 ML SYRINGE SC SCH (20:42)
[2021-11-06] MEDS: Famotidine 20 MG TAB PO SCH (20:42)
[2021-11-06] MEDS: Pregabalin 75 MG CAP PO SCH (20:42)
[2021-11-07] MEDS: Doxycycline 100 MG in Sodium Chloride 0.9% 100 ML IVPB SCH ×2 (06:21→16:55)
[2021-11-07] MEDS: Furosemide 80 MG TAB PO SCH (09:12)
[2021-11-07] MEDS: Clopidogrel Bisulfate 75 MG TAB PO SCH (09:12)
[2021-11-07] MEDS: clonazePAM 1 MG TAB PO SCH (09:12)
[2021-11-07] MEDS: Aspirin 81 mg Enteric Coated Tablet PO SCH (09:12)
[2021-11-07] MEDS: Famotidine 20 MG TAB PO SCH ×2 (09:13→21:32)
[2021-11-07] MEDS: Pregabalin 75 MG CAP PO SCH ×2 (09:13→21:31)
[2021-11-07] MEDS: Metoprolol Tartrate 25 MG TAB PO SCH ×2 (09:13→21:29)
[2021-11-07] MEDS: methylPREDNISolone Sod Succ 40 MG VIAL IVP SCH (09:15)
[2021-11-07 09:47] LABS: #Lymphocytes 2.5 thou/uL (1.20-3.40); #Monocytes 0.8 thou/uL (0.11-0.59); #Neutrophils 6.4 thou/uL (1.40-6.50); %Basophils 0.4 % (0.0-1.0); %Eosinophils 0.2 % (0.0-10.0); %Lymphocytes 25.2 % (21.0-51.0); %Monocytes 8.3 % (0.0-10.0); %Neutrophils 65.8 % (42.0-75.0); Hemoglobin 13.4 g/dL (14.0-18.0); Mean Corpuscular HGB CONC 31.7 g/dL (32.0-36.0); Mean Platelet Volume 6.9 fL (7.4-10.4); Platelet Count 291 thou/uL (130-400); RBC Distribution Width 13.4 % (11.5-14.5); White Blood Cell (WBC) Count 9.7 thou/uL (4.8-10.8)
[2021-11-07 10:00] LABS: Anion Gap 13 mmol/L (10-20); BUN (Urea Nitrogen) 17 mg/dL (8.4-25.7); Calc. Creatinine Clearance 108 mL/min (70-130); Calcium 9.9 mg/dL (7.8-10.44); Carbon Dioxide 31 mmol/L (23-31); Chloride 98 mmol/L (98-107); Glucose 126 mg/dL (80-115); Potassium 4.2 mmol/L (3.5-5.1); Sodium 138 mmol/L (136-145)
[2021-11-07] MEDS: HYDROcodone/Acetaminophen 5/325 mg Tablet PO PRN (12:41)
[2021-11-07] MEDS: Azithromycin 500 MG in Sodium Chloride 0.9% 250 ML 250 ML IVPB SCH (15:07)
[2021-11-07] MEDS: Nicotine 21 MG PATCH TD SCH (15:10)
[2021-11-07] MEDS: risperiDONE 1 MG TAB PO SCH (21:32)
[2021-11-07] MEDS: Escitalopram Oxalate 20 mg Tablet PO SCH (21:32)
[2021-11-07] MEDS: Enoxaparin Sodium 40 MG/0.4 ML SYRINGE SC SCH (21:33)
[2021-11-08] MEDS: Doxycycline 100 MG in Sodium Chloride 0.9% 100 ML IVPB SCH ×2 (05:40→17:51)
[2021-11-08 07:24] LABS: #Eosinphils 0.1 thou/uL (0.0-0.7); #Lymphocytes 3.2 thou/uL (1.20-3.40); #Monocytes 0.9 thou/uL (0.11-0.59); %Basophils 0.3 % (0.0-1.0); %Eosinophils 0.7 % (0.0-10.0); %Monocytes 9.3 % (0.0-10.0); %Neutrophils 54.6 % (42.0-75.0); Hemoglobin 13.5 g/dL (14.0-18.0); Mean Corpuscular HGB CONC 32.4 g/dL (32.0-36.0); Mean Corpuscular Hemoglobin 32.8 pg (27.0-31.0); Mean Platelet Volume 6.8 fL (7.4-10.4); Platelet Count 262 thou/uL (130-400); RBC Distribution Width 13.4 % (11.5-14.5); Red Blood Cell (RBC) Count 4.12 mill/uL (4.70-6.10); White Blood Cell (WBC) Count 9.2 thou/uL (4.8-10.8)
[2021-11-08 07:46] LABS: Anion Gap 11 mmol/L (10-20); BUN (Urea Nitrogen) 24 mg/dL (8.4-25.7); Calc. Creatinine Clearance 101 mL/min (70-130); Calcium 9.4 mg/dL (7.8-10.44); Carbon Dioxide 33 mmol/L (23-31); Chloride 97 mmol/L (98-107); Glucose 97 mg/dL (80-115); Potassium 3.3 mmol/L (3.5-5.1); Sodium 138 mmol/L (136-145)
[2021-11-08] MEDS: Furosemide 80 MG TAB PO SCH (08:49)
[2021-11-08] MEDS: Pregabalin 75 MG CAP PO SCH ×2 (08:49→20:00)
[2021-11-08] MEDS: clonazePAM 1 MG TAB PO SCH (08:50)
[2021-11-08] MEDS: Clopidogrel Bisulfate 75 MG TAB PO SCH (08:50)
[2021-11-08] MEDS: Metoprolol Tartrate 25 MG TAB PO SCH ×2 (08:50→20:01)
[2021-11-08] MEDS: Aspirin 81 mg Enteric Coated Tablet PO SCH (08:50)
[2021-11-08] MEDS: Famotidine 20 MG TAB PO SCH ×2 (08:50→19:59)
[2021-11-08] MEDS: methylPREDNISolone Sod Succ 40 MG VIAL IVP SCH (08:50)
[2021-11-08] MEDS ORDERED: Nicotine 14 MG PATCH TD PRN (13:01)
[2021-11-08] MEDS: Azithromycin 500 MG in Sodium Chloride 0.9% 250 ML 250 ML IVPB SCH (15:16)
[2021-11-08] MEDS: HYDROcodone/Acetaminophen 5/325 mg Tablet PO PRN (17:49)
[2021-11-08] MEDS: Enoxaparin Sodium 40 MG/0.4 ML SYRINGE SC SCH (19:59)
[2021-11-08] MEDS: Escitalopram Oxalate 20 mg Tablet PO SCH (19:59)
[2021-11-08] MEDS ORDERED: HYDROcodone/Acetaminophen 5/325 mg Tablet PO PRN (21:51)
[2021-11-08] MEDS: risperiDONE 1 MG TAB PO SCH (21:58)
[2021-11-09] MEDS: Doxycycline 100 MG in Sodium Chloride 0.9% 100 ML IVPB SCH ×2 (05:12→17:14)
[2021-11-09 06:39] LABS: #Basophils 0.1 thou/uL (0.0-0.2); #Eosinphils 0.1 thou/uL (0.0-0.7); #Lymphocytes 3.4 thou/uL (1.20-3.40); #Monocytes 1.2 thou/uL (0.11-0.59); #Neutrophils 6.3 thou/uL (1.40-6.50); %Basophils 0.6 % (0.0-1.0); %Eosinophils 0.6 % (0.0-10.0); %Lymphocytes 30.8 % (21.0-51.0); %Monocytes 10.6 % (0.0-10.0); %Neutrophils 57.4 % (42.0-75.0); Hemoglobin 13.8 g/dL (14.0-18.0); Mean Corpuscular HGB CONC 31.6 g/dL (32.0-36.0); Mean Corpuscular Hemoglobin 32.4 pg (27.0-31.0); Mean Platelet Volume 6.8 fL (7.4-10.4); Platelet Count 270 thou/uL (130-400); RBC Distribution Width 13.6 % (11.5-14.5); Red Blood Cell (RBC) Count 4.28 mill/uL (4.70-6.10); White Blood Cell (WBC) Count 10.9 thou/uL (4.8-10.8)
[2021-11-09 06:57] LABS: Anion Gap 13 mmol/L (10-20); BUN (Urea Nitrogen) 28 mg/dL (8.4-25.7); Calc. Creatinine Clearance 85 mL/min (70-130); Calcium 9.4 mg/dL (7.8-10.44); Carbon Dioxide 31 mmol/L (23-31); Chloride 97 mmol/L (98-107); Glucose 144 mg/dL (80-115); Potassium 3.2 mmol/L (3.5-5.1); Sodium 138 mmol/L (136-145)
[2021-11-09] MEDS: Pregabalin 75 MG CAP PO SCH ×2 (08:20→20:45)
[2021-11-09] MEDS: Aspirin 81 mg Enteric Coated Tablet PO SCH (08:20)
[2021-11-09] MEDS: clonazePAM 1 MG TAB PO SCH (08:20)
[2021-11-09] MEDS: Metoprolol Tartrate 25 MG TAB PO SCH ×2 (08:20→20:46)
[2021-11-09] MEDS: Clopidogrel Bisulfate 75 MG TAB PO SCH (08:20)
[2021-11-09] MEDS: Furosemide 80 MG TAB PO SCH (08:21)
[2021-11-09] MEDS: methylPREDNISolone Sod Succ 40 MG VIAL IVP SCH (08:22)
[2021-11-09 11:55] LABS: Actual Bicarbonate (HCO3a) 30.3 mEq/L (22-28); Base Excess (BEa) 3.3 mEq/L (-2.0 to +3.0); CO2 Tension 56.1 mmHg (35.0-45.0); Calcium, Ionized (arterial) 1.21 mmol/L (1.12-1.30); Carboxyhemoglobin (COHb) 0.8 gm% (0.0-3.0); Hemoglobin (Hb) 14.9 g/dL (14.0-18.0); O2 Tension (PaO2), arterial 69.9 mmHg (> 80.0); Potassium - ABG Lab 3.91 mmol/L (3.70-5.30); pH, Arterial 7.35 (7.35-7.45)
[2021-11-09 11:59] LABS: ALV-art Gradient 88.135 mmHg (0-20); Puncture Site RRA
[2021-11-09] MEDS: Potassium Chloride 20 MEQ TAB PO SCH ×2 (15:01→18:13)
[2021-11-09] MEDS: Enoxaparin Sodium 40 MG/0.4 ML SYRINGE SC SCH (20:45)
[2021-11-09] MEDS: Escitalopram Oxalate 20 mg Tablet PO SCH (20:46)
[2021-11-09] MEDS: risperiDONE 1 MG TAB PO SCH (20:46)
[2021-11-10] MEDS: Acetaminophen 325 MG TAB PO PRN ×3 (03:27→22:16)
[2021-11-10] MEDS: Doxycycline 100 MG in Sodium Chloride 0.9% 100 ML IVPB SCH ×2 (05:25→16:56)
[2021-11-10 07:45] LABS: Hemoglobin 14.1 g/dL (14.0-18.0); Mean Corpuscular HGB CONC 31.3 g/dL (32.0-36.0); Mean Corpuscular Hemoglobin 32.1 pg (27.0-31.0); RBC Distribution Width 14.2 % (11.5-14.5); Red Blood Cell (RBC) Count 4.39 mill/uL (4.70-6.10)
[2021-11-10 08:23] LABS: Anion Gap 13 mmol/L (10-20); BUN (Urea Nitrogen) 26 mg/dL (8.4-25.7); Calc. Creatinine Clearance 104 mL/min (70-130); Calcium 9.6 mg/dL (7.8-10.44); Carbon Dioxide 34 mmol/L (23-31); Chloride 97 mmol/L (98-107); Glucose 92 mg/dL (80-115); Potassium 4.7 mmol/L (3.5-5.1); Sodium 139 mmol/L (136-145)
[2021-11-10 09:01] LABS: Eosinophils 1 % (0-10); Lymphocytes 37 % (21-51); MDiff Complete? YES; Macrocytosis SLIGHT = 6-15 cells (100X) (0-5/hpf); Mean Platelet Volume 7.6 fL (7.4-10.4); Monocytes 12 % (0-10); Neutrophil 50 % (42-75); Platelet Count 294 thou/uL (130-400); Platelet Morphology Comment Appears Adequate; Polychromasia SLIGHT = 2-3 cells (100X) (0-2/hpf); White Blood Cell (WBC) Count 11.2 thou/uL (4.8-10.8)
[2021-11-10] MEDS: clonazePAM 1 MG TAB PO SCH (09:45)
[2021-11-10] MEDS: Folic Acid 1 MG TAB PO SCH (09:45)
[2021-11-10] MEDS: Clopidogrel Bisulfate 75 MG TAB PO SCH (09:45)
[2021-11-10] MEDS: Aspirin 81 mg Enteric Coated Tablet PO SCH (09:45)
[2021-11-10] MEDS: Furosemide 80 MG TAB PO SCH (09:46)
[2021-11-10] MEDS: Metoprolol Tartrate 25 MG TAB PO SCH ×2 (09:47→22:19)
[2021-11-10] MEDS: methylPREDNISolone Sod Succ 40 MG VIAL IVP SCH (09:47)
[2021-11-10] MEDS: Pregabalin 75 MG CAP PO SCH ×2 (09:47→22:17)
[2021-11-10] MEDS: risperiDONE 1 MG TAB PO SCH (22:18)
[2021-11-10] MEDS: Escitalopram Oxalate 20 mg Tablet PO SCH (22:19)
[2021-11-10] MEDS: Enoxaparin Sodium 40 MG/0.4 ML SYRINGE SC SCH (22:19)
[2021-11-11] MEDS: Doxycycline 100 MG in Sodium Chloride 0.9% 100 ML IVPB SCH ×2 (05:04→15:52)
[2021-11-11 06:21] LABS: #Basophils 0.1 thou/uL (0.0-0.2); #Eosinphils 0.1 thou/uL (0.0-0.7); #Lymphocytes 3.4 thou/uL (1.20-3.40); #Monocytes 0.9 thou/uL (0.11-0.59); #Neutrophils 6.3 thou/uL (1.40-6.50); %Basophils 0.5 % (0.0-1.0); %Eosinophils 0.8 % (0.0-10.0); %Lymphocytes 31.2 % (21.0-51.0); %Monocytes 8.5 % (0.0-10.0); Hemoglobin 14.1 g/dL (14.0-18.0); Mean Corpuscular HGB CONC 31.1 g/dL (32.0-36.0); Mean Corpuscular Hemoglobin 31.7 pg (27.0-31.0); Mean Platelet Volume 6.9 fL (7.4-10.4); Platelet Count 283 thou/uL (130-400); RBC Distribution Width 13.7 % (11.5-14.5); Red Blood Cell (RBC) Count 4.46 mill/uL (4.70-6.10); White Blood Cell (WBC) Count 10.7 thou/uL (4.8-10.8)
[2021-11-11 06:43] LABS: Anion Gap 15 mmol/L (10-20); BUN (Urea Nitrogen) 25 mg/dL (8.4-25.7); Calc. Creatinine Clearance 103 mL/min (70-130); Calcium 9.9 mg/dL (7.8-10.44); Carbon Dioxide 33 mmol/L (23-31); Chloride 94 mmol/L (98-107); Glucose 101 mg/dL (80-115); Potassium 4.2 mmol/L (3.5-5.1); Sodium 138 mmol/L (136-145)
[2021-11-11] MEDS: clonazePAM 1 MG TAB PO SCH (09:31)
[2021-11-11] MEDS: Aspirin 81 mg Enteric Coated Tablet PO SCH (09:31)
[2021-11-11] MEDS: Clopidogrel Bisulfate 75 MG TAB PO SCH (09:31)
[2021-11-11] MEDS: Folic Acid 1 MG TAB PO SCH (09:32)
[2021-11-11] MEDS: methylPREDNISolone Sod Succ 40 MG VIAL IVP SCH (09:32)
[2021-11-11] MEDS: Furosemide 80 MG TAB PO SCH (09:32)
[2021-11-11] MEDS: Metoprolol Tartrate 25 MG TAB PO SCH ×2 (09:32→21:13)
[2021-11-11] MEDS: Pregabalin 75 MG CAP PO SCH ×2 (09:33→21:11)
[2021-11-11] MEDS: HYDROcodone/Acetaminophen 5/325 mg Tablet PO PRN (15:51)
[2021-11-11] MEDS: Enoxaparin Sodium 40 MG/0.4 ML SYRINGE SC SCH (21:11)
[2021-11-11] MEDS: risperiDONE 1 MG TAB PO SCH (21:12)
[2021-11-11] MEDS: Escitalopram Oxalate 20 mg Tablet PO SCH (21:13)
[2021-11-12] MEDS: HYDROcodone/Acetaminophen 5/325 mg Tablet PO PRN ×3 (00:15→20:28)
[2021-11-12] MEDS: Doxycycline 100 MG in Sodium Chloride 0.9% 100 ML IVPB SCH ×3 (05:33→17:42)
[2021-11-12 05:48] LABS: #Basophils 0.1 thou/uL (0.0-0.2); #Eosinphils 0.1 thou/uL (0.0-0.7); #Lymphocytes 3.1 thou/uL (1.20-3.40); #Monocytes 0.8 thou/uL (0.11-0.59); #Neutrophils 7.3 thou/uL (1.40-6.50); %Basophils 0.5 % (0.0-1.0); %Eosinophils 0.7 % (0.0-10.0); %Lymphocytes 27.1 % (21.0-51.0); %Monocytes 6.9 % (0.0-10.0); %Neutrophils 64.7 % (42.0-75.0); Hemoglobin 13.7 g/dL (14.0-18.0); Mean Corpuscular HGB CONC 32.2 g/dL (32.0-36.0); Mean Corpuscular Hemoglobin 32.7 pg (27.0-31.0); Platelet Count 251 thou/uL (130-400); RBC Distribution Width 13.6 % (11.5-14.5); White Blood Cell (WBC) Count 11.3 thou/uL (4.8-10.8)
[2021-11-12 06:14] LABS: Anion Gap 13 mmol/L (10-20); BUN (Urea Nitrogen) 28 mg/dL (8.4-25.7); Calc. Creatinine Clearance 106 mL/min (70-130); Calcium 9.6 mg/dL (7.8-10.44); Carbon Dioxide 32 mmol/L (23-31); Chloride 93 mmol/L (98-107); Glucose 161 mg/dL (80-115); Potassium 3.4 mmol/L (3.5-5.1); Sodium 135 mmol/L (136-145)
[2021-11-12] MEDS: Furosemide 80 MG TAB PO SCH (09:26)
[2021-11-12] MEDS: Clopidogrel Bisulfate 75 MG TAB PO SCH (09:26)
[2021-11-12] MEDS: Folic Acid 1 MG TAB PO SCH (09:26)
[2021-11-12] MEDS: clonazePAM 1 MG TAB PO SCH (09:26)
[2021-11-12] MEDS: Aspirin 81 mg Enteric Coated Tablet PO SCH (09:26)
[2021-11-12] MEDS: Pregabalin 75 MG CAP PO SCH ×2 (09:27→20:29)
[2021-11-12] MEDS: methylPREDNISolone Sod Succ 40 MG VIAL IVP SCH (09:28)
[2021-11-12] MEDS: Metoprolol Tartrate 25 MG TAB PO SCH ×2 (09:34→20:30)
[2021-11-12] MEDS ORDERED: Potassium Chloride 20 MEQ TAB PO SCH (09:45)
[2021-11-12] MEDS: Doxycycline 100 MG CAP PO SCH (20:29)
[2021-11-12] MEDS: risperiDONE 1 MG TAB PO SCH (20:29)
[2021-11-12] MEDS: Enoxaparin Sodium 40 MG/0.4 ML SYRINGE SC SCH (20:30)
[2021-11-12] MEDS: Escitalopram Oxalate 20 mg Tablet PO SCH (20:30)
[2021-11-13] MEDS: HYDROcodone/Acetaminophen 5/325 mg Tablet PO PRN ×2 (04:40→13:12)
[2021-11-13 07:41] LABS: SARS-CoV-2 PCR by NAA Not Detected (NotDetected)
[2021-11-13] MEDS ORDERED: predniSONE 20 MG TAB PO SCH (08:00)
[2021-11-13] MEDS: Doxycycline 100 MG CAP PO SCH (08:05)
[2021-11-13] MEDS: Aspirin 81 mg Enteric Coated Tablet PO SCH (08:05)
[2021-11-13] MEDS: clonazePAM 1 MG TAB PO SCH (08:06)
[2021-11-13] MEDS: Folic Acid 1 MG TAB PO SCH (08:06)
[2021-11-13] MEDS: Pregabalin 75 MG CAP PO SCH (08:06)
[2021-11-13] MEDS: Metoprolol Tartrate 25 MG TAB PO SCH (08:07)
[2021-11-13] MEDS: Clopidogrel Bisulfate 75 MG TAB PO SCH (08:07)
[2021-11-13] MEDS ORDERED: Furosemide 80 MG TAB PO SCH (09:00)
[2021-11-13] MEDS: Furosemide 80 MG TAB PO SCH (09:59)
[2021-11-13 11:45] VITALS: BP 111/75; TEMP 98.2
== END 2021-11-13 15:10 | disposition home or self-care (01) | DRG 177 ==
LOC: ERS 11:47 → T4-B 14:37
PROVIDERS: ADMIT Internal Medicine; ATTEND Internal Medicine
DX: J69.0 Pneumonitis due to inhalation of food and vomit (principal); J96.21 Acute and chronic respiratory failure with hypoxia; I13.0 Hypertensive heart and chronic kidney disease with heart failure and stage 1 through stage 4 chronic kidney disease, or unspecified chronic kidney disease; J44.1 Chronic obstructive pulmonary disease with (acute) exacerbation; N39.0 Urinary tract infection, site not specified; Z20.822 Contact with and (suspected) exposure to COVID-19; I50.9 Heart failure, unspecified; N18.9 Chronic kidney disease, unspecified; E78.5 Hyperlipidemia, unspecified; E11.51 Type 2 diabetes mellitus with diabetic peripheral angiopathy without gangrene; E11.22 Type 2 diabetes mellitus with diabetic chronic kidney disease; I25.10 Atherosclerotic heart disease of native coronary artery without angina pectoris; F32.A Depression, unspecified; F17.210 Nicotine dependence, cigarettes, uncomplicated; R33.9 Retention of urine, unspecified; D52.9 Folate deficiency anemia, unspecified; E87.6 Hypokalemia; Z96.641 Presence of right artificial hip joint; Z88.2 Allergy status to sulfonamides; Z88.8 Allergy status to other drugs, medicaments and biological substances; Z88.1 Allergy status to other antibiotic agents; Z88.5 Allergy status to narcotic agent; Z79.51 Long term (current) use of inhaled steroids; Z79.82 Long term (current) use of aspirin; Z79.899 Other long term (current) drug therapy; Z95.1 Presence of aortocoronary bypass graft; Z90.49 Acquired absence of other specified parts of digestive tract; Z99.81 Dependence on supplemental oxygen
CPT/HCPCS: 36415; 36600; 71045; 74230; 80048; 80053; 81003; 81015; 82607; 82746; 82805; 83605; 83630; 83735; 83880; 84484; 85025; 87040; 87045; 87046; 87086; 87324; 87427; 87449; 87899; 93005; 94640; 96365; 96367; 96375; J0456; J1100; J1650; J2405; J2920; J3490; J7050; J7512; J7620; U0002; U0003; U0005

== ENCOUNTER 2023-11-24 09:48 | Outpatient (CLI) | payer MEDICARE | END 2023-11-24 09:49 | disposition home or self-care (01) | LOC: RAD 09:48 | PROVIDERS: ATTEND Internal Medicine Critical Care Medicine | DX: R06.00 Dyspnea, unspecified (principal) | CPT/HCPCS: 71046 ==

== ENCOUNTER 2025-05-10 09:57 | Outpatient (CLI) | payer MEDICARE | END 2025-05-10 09:58 | disposition home or self-care (01) | LOC: RAD 09:57 | PROVIDERS: ATTEND Internal Medicine Critical Care Medicine | DX: R06.00 Dyspnea, unspecified (principal); J98.4 Other disorders of lung | CPT/HCPCS: 71046 ==